=== PATIENT | male | born 1960 | race Caucasian/White ===

== ENCOUNTER 2016-09-06 06:58 | Day surgery (SDC) | payer BC ==
[2016-09-01 10:09] VITALS: BMI 39.3
[~2016-09-06 06:58] MED LIST: LACTATED RINGERS 1,000 ML IV SCH; LIDOCAINE 1% 20 ML VIAL (10MG/ML) FOR IV START INTRADERMA PRN
[2016-09-06 07:13] VITALS: TEMP 97.1
[2016-09-06] MEDS ORDERED: LACTATED RINGERS 1,000 ML IV ONE ×2 (07:24)
[2016-09-06] MEDS ORDERED: PROPOFOL 10 MG/ML 20 ML VIAL IV ONE (07:43)
--- NOTE | 2016-09-06 07:50 | P.GSHP ---
History of Present Illness H&P Date: 09/06/16 Chief Complaint: Screen colonoscopy This a 56-year-old male referred from Dr. chen. Patient presents today for screening colonoscopy. He denies a significant GI complaints Past Medical History Past Medical History: Hypertension, Sleep Apnea/CPAP/BIPAP Additional Past Medical History / Comment(s): BRADYCARDIA & PVC'S, NO C-PAP, BACK PAIN, HX OF DIVERTICULITIS & POLYPS., STATES HE HAS A COLD. History of Any Multi-Drug Resistant Organisms: None Reported Past Surgical History: Hernia Repair, Joint Replacement Past Anesthesia/Blood Transfusion Reactions: No Reported Reaction Past Psychological History: No Psychological Hx Reported Smoking Status: Former smoker Past Alcohol Use History: Occasional Additional Past Alcohol Use History / Comment(s): QUIT SMOKING 2005. SMOKED 1PPD FOR APPROX 25 YEARS. Past Drug Use History: None Reported - Past Family History Brother(s) Family Medical History: Cancer Additional Family Medical History / Comment(s): KIDNEY CANCER Daughter(s) Family Medical History: Cancer Additional Family Medical History / Comment(s): THYROID CANCER Medications and Allergies Home Medications Medication Instructions Recorded Confirmed Type Aspirin [Adult Low Dose Aspirin EC] 81 mg PO DAILY 09/01/16 09/01/16 History Cold And Sinus Rx 1 dose PO DIRECTED PRN 09/01/16 History Cyclobenzaprine [Flexeril] 10 mg PO DIRECTED 09/01/16 09/01/16 History Hydrochlorothiazide 12.5 mg PO DAILY 09/01/16 09/01/16 History Ibuprofen [Motrin] 600 mg PO DIRECTED PRN 09/01/16 09/01/16 History Lisinopril 40 mg PO DAILY 09/01/16 09/01/16 History Allergies Allergy/AdvReac Type Severity Reaction Status Date / Time No Known Allergies Allergy Verified 09/01/16 09:48 Surgical - Exam Vital Signs Temp Pulse Resp BP Pulse Ox 97.1 F L 67 20 163/89 95 09/06/16 07:12 09/06/16 07:12 09/06/16 07:12 09/06/16 07:12 09/06/16 07:12 - General well developed, no distress - Eyes PERRL - ENT normal pinna - Neck no masses - Respiratory normal expansion - Cardiovascular Rhythm: regular - Abdomen Abdomen: soft, non tender Assessment and Plan Plan: We'll perform screening colonoscopy.
--- NOTE | 2016-09-06 08:01 | P.OP ---
Date of Procedure: 09/06/16 Preoperative Diagnosis: Screening colonoscopy Postoperative Diagnosis: Diverticulosis Procedure(s) Performed: Colonoscopy Anesthesia: MAC Surgeon: Clive Recinos Pathology: none sent Condition: stable Disposition: PACU Description of Procedure: The patient's placed on the endoscopy table in the lateral position. He received IV sedation. Digital rectal exam was performed revealed no abnormalities. The prostate was symmetrical without nodules. The flexible colonoscope was then placed patient anus and passed throughout the entire colon. The ileocecal valve was visualized. Cecum, ascending and transverse colon appeared normal. In the descending; there is mild diverticular changes. There is no evidence of diverticulitis. The scope was then brought back the rectum and this appeared normal. Scope was withdrawn for patient.
[2016-09-06 08:14] VITALS: RESP 18
[2016-09-06 08:29] VITALS: BP 127/78; PULSE 56
== END 2016-09-06 09:58 | disposition home or self-care (01) ==
LOC: ORWHC2ENDO 06:58
PROVIDERS: ATTEND Surgery
DX: Z12.11 Encounter for screening for malignant neoplasm of colon (principal); K57.30 Diverticulosis of large intestine without perforation or abscess without bleeding; Z86.010 Personal history of colon polyps; Z87.19 Personal history of other diseases of the digestive system; I10 Essential (primary) hypertension; Z87.891 Personal history of nicotine dependence; I49.3 Ventricular premature depolarization; G47.33 Obstructive sleep apnea (adult) (pediatric); Z99.89 Dependence on other enabling machines and devices; Z79.82 Long term (current) use of aspirin; Z79.1 Long term (current) use of non-steroidal anti-inflammatories (NSAID); Z79.899 Other long term (current) drug therapy
CPT/HCPCS: J2704; G0105; 99153

== ENCOUNTER 2021-08-12 08:40 | Day surgery (SDC) | payer BC ==
[2021-08-10 09:27] VITALS: BMI 44.3
[~2021-08-12 08:40] MED LIST changes: +LIDOCAINE 1% (10MG/ML) FOR IV START INTRADERMA PRN; -LIDOCAINE 1% 20 ML VIAL (10MG/ML) FOR IV START INTRADERMA PRN
[2021-08-12 09:08] VITALS: RESP 16; TEMP 97
[2021-08-12] MEDS ORDERED: KETAMINE 10 MG/ML 20 ML VIAL ONE (10:02)
[2021-08-12] MEDS ORDERED: LIDOCAINE 1% INJ 10MG/ML (20 ML MDV) ONE (10:02)
[2021-08-12] MEDS ORDERED: PROPOFOL 10 MG/ML 20 ML VIAL IV ONE (10:02)
--- NOTE | 2021-08-12 10:05 | P.GSHP ---
History of Present Illness H&P Date: 08/12/21 Chief Complaint: History of rectal bleeding 's is a 61-year-old male presents today for colonoscopy. Patient history of rectal bleeding. Past Medical History Past Medical History: GI Bleed, Hypertension, Prostate Disorder, Sleep Apnea /CPAP/BIPAP Additional Past Medical History / Comment(s): BRADYCARDIA & PVC'S, NO C-PAP, BACK PAIN, HX OF DIVERTICULITIS & POLYPS., History of Any Multi-Drug Resistant Organisms: None Reported Past Surgical History: Hernia Repair, Joint Replacement Additional Past Surgical History / Comment(s): lt knee replacement Past Anesthesia/Blood Transfusion Reactions: No Reported Reaction Smoking Status: Former smoker - Past Family History Brother(s) Family Medical History: Cancer Additional Family Medical History / Comment(s): KIDNEY CANCER Daughter(s) Family Medical History: Cancer Additional Family Medical History / Comment(s): THYROID CANCER Medications and Allergies Home Medications Medication Instructions Recorded Confirmed Type Aspirin [Adult Low Dose Aspirin EC] 81 mg PO DAILY 09/01/16 08/10/21 History Cyclobenzaprine [Flexeril] 10 mg PO DIRECTED PRN 09/01/16 08/10/21 History Hydrochlorothiazide 25 mg PO DAILY 09/01/16 08/10/21 History [hydroCHLOROthiazide] Ibuprofen [Motrin] 600 mg PO DIRECTED PRN 09/01/16 08/10/21 History lisinopriL 40 mg PO DAILY 09/01/16 08/10/21 History Finasteride [Proscar] 5 mg PO DAILY 08/10/21 08/10/21 History amLODIPine [Norvasc] 2.5 mg PO DAILY 08/10/21 08/10/21 History Allergies Allergy/AdvReac Type Severity Reaction Status Date / Time No Known Allergies Allergy Verified 08/12/21 09:03 Surgical - Exam Vital Signs Temp Pulse Resp BP Pulse Ox 97.0 F L 74 16 143/76 94 L 08/12/21 08:57 08/12/21 08:57 08/12/21 08:57 08/12/21 08:57 08/12/21 08:57 - General well developed, well nourished, no distress - Eyes PERRL - ENT normal pinna - Neck no masses - Respiratory normal expansion - Cardiovascular Rhythm: regular - Abdomen Abdomen: soft, non tender Assessment and Plan Assessment: History of rectal bleeding. We'll perform colonoscopy.
--- NOTE | 2021-08-12 10:19 | P.OP ---
Date of Procedure: 08/12/21 Preoperative Diagnosis: GI bleed Postoperative Diagnosis: Diverticulosis Right colon polyp Rectal polyp Procedure(s) Performed: Colonoscopy Anesthesia: MAC Surgeon: Clive Recinos Pathology: other (colon polyps) Condition: stable Disposition: PACU Description of Procedure: The patient's placed on the endoscopy table in the lateral position. He received IV sedation. Digital rectal exam was performed which revealed no abnormalities. The flexible colonoscope was then placed patient anus passed ro tator entire colon. The ileocecal valve was visualized. The cecum was examined. In the right colon there was a small polyp seen this removed with the cold forceps remainder the ascending colon, transverse colon appeared normal in the descending; there is mild diverticular changes. Scope was back the rectum and another polyp seen was removed forcep. Scope withdrawn for patient.
[2021-08-12 10:45] VITALS: BP 130/83; PULSE 64
== END 2021-08-12 11:10 | disposition home or self-care (01) ==
LOC: ORWHC2ENDO 08:40
PROVIDERS: ATTEND Surgery
DX: K57.90 Diverticulosis of intestine, part unspecified, without perforation or abscess without bleeding (principal); K63.5 Polyp of colon; K62.1 Rectal polyp; I10 Essential (primary) hypertension; G47.30 Sleep apnea, unspecified; Z87.891 Personal history of nicotine dependence; Z80.51 Family history of malignant neoplasm of kidney; Z80.8 Family history of malignant neoplasm of other organs or systems; Z79.82 Long term (current) use of aspirin
CPT/HCPCS: 45380; 88305; J2001; J2704

== ENCOUNTER → 2022-11-11 | Outpatient (CLI) | payer BC ==
--- NOTE | 2022-11-12 10:05 | MR ---
EXAMINATION TYPE: MR Prostate wo/w con DATE OF EXAM: 11/11/2022 9:17 AM COMPARISON: CT abdomen pelvis 07/23/2010. CLINICAL INDICATION:Male, 62 years old with history of R97.20 ELEVATED PSA; TECHNIQUE: Multi-planar, multi-sequence imaging of the pelvis is performed prior to and following the uncomplicated administration of bolus intravenous gadolinium. CONTRAST: 14.5 Gadavist Interpretive Criteria: PI-RADS v2.1 SERUM PSA: 4.3 on 09/29/2022 3.49 on 09/07/2020 SURGICAL PATHOLOGY: No data available. FINDINGS: Prostatic dimensions: 5.2 x 5.1 x 4.3 cm. Ellipsoid Volume:59.71 (PSA density=0.07 ng/mL/mL) CENTRAL GLAND (Central and Transition Zones/CZ+TZ): Multiple bilateral, heterogenous appearing hypertrophic stromal nodules, without suspicious lesion. M edian lobe hypertrophy with protrusion into the base of the bladder. (PI-RADS 2) PERIPHERAL ZONE (PZ): No evidence of masslike abnormality, or localized perfusional hypervascularity, to further suggest a focus of clinically significant prostate cancer. (PI-RADS 2) SEMINAL VESICLES (SV): Symmetric and unremarkable. Low T2/T1 signal noted within the seminal vesicles. PERIPROSTATIC TISSUES: Unremarkable. LYMPH NODES: No enlarged pelvic lymph node. REMAINING PELVIS: Bladder wall is within normal limits given distention. No abnormal free or organized intrapelvic fluid collection. No pathologic bowel dilation or mural thickening. OSSEOUS STRUCTURES: No suspicious osseous abnormality. IMPRESSION: 1. No specific features for high-risk prostate cancer. Maximum PI-RADS score: 2. 2. Moderate BPH, estimated gland volume 59.71 mL.
== END | disposition home or self-care (01) ==
LOC: RADMRIMAIN 08:11
PROVIDERS: ATTEND Family Medicine
DX: N40.0 Benign prostatic hyperplasia without lower urinary tract symptoms (principal); R97.20 Elevated prostate specific antigen [PSA]
CPT/HCPCS: 72197; A9585

== ENCOUNTER → 2022-11-23 | Outpatient (CLI) | payer BC ==
--- NOTE | 2022-11-23 14:23 | P.SLEEP ---
History of Present Illness DATE: 11/23/2022 CONSULTATION/NEW PATIENT EVALUATION HISTORY OF PRESENT ILLNESS/SLEEP-WAKE EVALUATION: 62-year-old gentleman had been evaluated in the sleep center for possible obstructive sleep apnea hypopnea syndrome. Patient has history of obstructive sleep apnea diagnosed in another institution 2013, she was started on CPAP at that time but did use equipment only for short period of time. SLEEP SCHEDULE: Usually sleep schedule from 10 PM to 7:30 AM. FALLING ASLEEP: No problems with falling asleep, although patient has TV set and bedroom. DURING SLEEP: Patient has loud snoring, episodes of stop breathing during the sleep, multiple awakenings 5 times with nocturia, dry mouth, grinding teeth and restless leg symptoms. No history of hypnogogical hallucinations, sleep paralysis, or cataplexy. DURING THE DAY/WAKE STATE: In the morning patient wake up tired, has problems with memory. Dewart sleepiness scale is 13, which indicates sleepiness. Patient may take naps 1 nap during lunch hour. PAST MEDICAL HISTORY: Hypertension, BPH, arthritis. PAST SURGICAL HISTORY: Status post left knee replacement, status post hernia repair. MEDICATIONS: Hydrochlorothiazide 25 mg once a day, Norvasc 2.5 mg once a day, lisinopril 40 mg once a day, Flomax 0.4 mg once a day, oxybutynin 10 mg once a day, ibuprofen. SOCIAL HISTORY: Positive for smoking for about 30 years, quit in 2005, alcohol consumption occasional. FAMILY HISTORY: Heart problems, thyroid problems. REVIEW OF SYSTEMS: Loud snoring, multiple awakenings from sleep, sleepiness during the day. No fevers. No double vision. No recent chest pain. No shortness of breath. No abdominal pain. No bleeding episodes. No blood in urine. No seizure episodes. PHYSICAL EXAMINATION: GENERAL: A pleasant patient without any distress. VITAL SIGNS: BP 131/73, HR 69, RR 16, weight 331.2 pounds, height 5 foot 10 inches, body mass index 47.6, temperature 97.6, oxygen saturation at room air 97%. HEENT: PERRLA, EOMI. Evaluation of oropharynx showed tongue protrudes midline, low position of soft palate Mallampati 4. NECK: Supple. No JVD. Thyroid is not palpable. 19.5 inches in circumference. LUNGS: Clear to percussion and to auscultation. Good air exchange. No wheezing or rhonchi. HEART: S1, S2 regular. No murmurs, gallops or rubs. ABDOMEN: Soft and nontender. Bowel sounds are present. No organomegaly appreciated. EXTREMITIES: No clubbing or cyanosis. 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 Cranial nerves 2 to 7 intact. There is no fasciculation or atrophy noted. No focal deficits observed. ASSESSMENT: 1. Loud snoring, multiple awakenings from sleep, extremely low position of soft palate Mallampati 4, wide neck 19.5 inches in circumference, sleepiness Dewart Sleepiness Scale 13. History of obstructive sleep apnea before. Obstructive sleep apnea hypopnea syndrome. 2. Obesity, BMI 47.6. 3. Hypertension. 4. BPH. 5 history of arthritis. 6 . Status post left knee replacement. 7. Status post hernia repair. 8. Restless leg symptoms PLAN: 1. Polysomnography for evaluation of patient's breathing during sleep. 2. CPAP/BiPAP titration if sleep study confirms obstructive sleep apnea- hypopnea syndrome. 3. Preferable position during sleep on the side. 4. No driving if patient feels any sleepiness. Patient is aware of civil and criminal liability for unsafe driving. 5. Sleep hygiene with regular sleep time for at least 7.5-8 hours. 6. Watching and losing weight. Thank you very much for referring this patient for consultation. Sincerely, Jose Bowen MD, PhD, FAASM. Diplomat of [place] [employer], Sleep Medicine Board by [place] [employer] [place] [facility] [place] Past Medical History Past Medical History: GI Bleed, Hypertension, Prostate Disorder, Sleep Apne a/CPAP/BIPAP Additional Past Medical History / Comment(s): BRADYCARDIA & PVC'S, NO C-PAP, BACK PAIN, HX OF DIVERTICULITIS & POLYPS., History of Any Multi-Drug Resistant Organisms: None Reported Past Surgical History: Hernia Repair, Joint Replacement Additional Past Surgical History / Comment(s): lt knee replacement Past Anesthesia/Blood Transfusion Reactions: No Reported Reaction Smoking Status: Former smoker - Past Family History Brother(s) Family Medical History: Cancer Additional Family Medical History / Comment(s): KIDNEY CANCER Daughter(s) Family Medical History: Cancer Additional Family Medical History / Comment(s): THYROID CANCER Medications and Allergies Home Medications Medication Instructions Recorded Confirmed Type Aspirin [Adult Low Dose Aspirin EC] 81 mg PO DAILY 09/01/16 08/10/21 History Cyclobenzaprine [Flexeril] 10 mg PO DIRECTED PRN 09/01/16 08/10/21 History Ibuprofen [Motrin] 600 mg PO DIRECTED PRN 09/01/16 08/10/21 History hydroCHLOROthiazide 25 mg PO DAILY 09/01/16 08/10/21 History lisinopriL 40 mg PO DAILY 09/01/16 08/10/21 History Finasteride [Proscar] 5 mg PO DAILY 08/10/21 08/10/21 History amLODIPine [Norvasc] 2.5 mg PO DAILY 08/10/21 08/10/21 History Allergies Allergy/AdvReac Type Severity Reaction Status Date / Time No Known Allergies Allergy Verified 08/12/21 09:03 Sleep Note - Sleep Note Sleep Note: Temperature: Pulse Rate: Respiratory Rate: Blood Pressure: SpO2: Height: Weight: BMI: Neck Circumference:
== END ==
LOC: SLEEP 13:13
PROVIDERS: ATTEND Internal Medicine
DX: G47.33 Obstructive sleep apnea (adult) (pediatric) (principal); E66.9 Obesity, unspecified; Z68.42 Body mass index [BMI] 45.0-49.9, adult; Z96.652 Presence of left artificial knee joint; Z98.890 Other specified postprocedural states; Z99.89 Dependence on other enabling machines and devices; G25.81 Restless legs syndrome; Z87.891 Personal history of nicotine dependence
CPT/HCPCS: 99211

== ENCOUNTER → 2023-05-03 | Outpatient (CLI) | payer BC ==
--- NOTE | 2023-05-03 16:08 | US ---
EXAMINATION TYPE: US kidneys/renal and bladder DATE OF EXAM: 05/03/2023 COMPARISON: NONE CLINICAL INDICATION: Male, 63 years old with history of N28.1 CYST OF KIDNEY, ACQUIRED; patient state s cyst seen at [facility], no imaging here, large body habitus EXAM MEASUREMENTS: Right Kidney: 13.0 x 5.3 x 6.0 cm Left Kidney: 12.4 x 6.1 x 7.1 cm Right Kidney: No hydronephrosis or masses seen, large in size Left Kidney: No hydronephrosis or masses seen Bladder: wnl Bilateral Jets seen: yes There is no evidence for hydronephrosis at this point in time. No nephrolithiasis is seen. No taiwo s are identified. Cortical medullary differentiation is maintained. The urinary bladder is anechoic. Bilateral ureteral jets are seen. IMPRESSION: No hydronephrosis or nephrolithiasis. No definitive renal cysts identified.
== END | disposition home or self-care (01) ==
LOC: RADUSWWP 15:30
PROVIDERS: ATTEND Urology
DX: N28.1 Cyst of kidney, acquired (principal)
CPT/HCPCS: 76770

== ENCOUNTER 2024-08-22 07:39 | Day surgery (SDC) | payer BC, MEDICARE ==
[2024-08-20 13:11] VITALS: BMI 44.7
[2024-08-22 08:14] VITALS: RESP 16; TEMP 98.3
[2024-08-22] MEDS: LACTATED RINGERS 1,000 ML IV ONE (08:25)
[2024-08-22] MEDS ORDERED: PROPOFOL 10 MG/ML 20 ML VIAL IV ONE (08:38)
--- NOTE | 2024-08-22 08:41 | P.GSHP ---
History of Present Illness H&P Date: 08/22/24 Chief Complaint: Screening colonoscopy Is a 64-year-old male presents today for screening colonoscopy. Patient denies any significant GI complaints. Past Medical History Past Medical History: GI Bleed, Hypertension, Prostate Disorder, Sleep Apnea/CPAP/BIPAP Additional Past Medical History / Comment(s): BRADYCARDIA & PVC'S, NO C-PAP, BACK PAIN, HX OF DIVERTICULITIS & POLYPS., History of Any Multi-Drug Resistant Organisms: None Reported Past Surgical History: Hernia Repair, Joint Replacement Additional Past Surgical History / Comment(s): lt knee replacement, colonoscopy Past Anesthesia/Blood Transfusion Reactions: No Reported Reaction Smoking Status: Current some day smoker - Past Family History Brother(s) Family Medical History: Cancer Additional Family Medical History / Comment(s): KIDNEY CANCER, lymphoma Daughter(s) Family Medical History: Cancer Additional Family Medical History / Comment(s): THYROID CANCER Mother Family Medical History: Cancer Additional Family Medical History / Comment(s): lymphoma Medications and Allergies Home Medications Medication Instructions Recorded Confirmed Type Aspirin [Adult Low Dose Aspirin EC] 81 mg PO DAILY 09/01/16 08/20/24 History Ibuprofen [Motrin] 600 mg PO DAILY 09/01/16 08/20/24 History hydroCHLOROthiazide 50 mg PO DAILY 09/01/16 08/20/24 History lisinopriL 40 mg PO DAILY 09/01/16 08/20/24 History amLODIPine [Norvasc] 2.5 mg PO DAILY 08/10/21 08/20/24 History Cetirizine HCl 10 mg PO DAILY 08/20/24 08/20/24 History Tamsulosin [Flomax] 0.4 mg PO HS 08/20/24 08/20/24 History Allergies Allergy/AdvReac Type Severity Reaction Status Date / Time No Known Allergies Allergy Verified 08/22/24 08:06 Surgical - Exam Vital Signs Temp Pulse Resp BP Pulse Ox 98.3 F 85 16 142/73 92 L 08/22/24 08:13 08/22/24 08:13 08/22/24 08:13 08/22/24 08:13 08/22/24 08:13 - General well developed, well nourished, no distress - Eyes PERRL - ENT normal pinna - Neck no masses - Respiratory normal expansion - Cardiovascular Rhythm: regular - Abdomen Abdomen: soft, non tender Assessment and Plan Assessment: Will perform screening colonoscopy.
--- NOTE | 2024-08-22 08:51 | P.OP ---
Date of Procedure: 08/22/24 Preoperative Diagnosis: Screening colonoscopy Postoperative Diagnosis: diverticulosis Procedure(s) Performed: Screening colonoscopy Anesthesia: MAC Surgeon: Clive Recinos Pathology: none sent Condition: stable Disposition: PACU Description of Procedure: Patient was placed on the endoscopy table in the lateral position. S he received IV sedation. Digital rectal exam performed. This revealed no abnormalities. Flexible colonoscope was then placed patient anus passed throughout the entire colon. The ileocecal valve was visualized. The cecum, ascending and transverse colon appeared normal. In the descending sigmoid colon there was moderate diverticular changes. Scope was brought back into the rectum this appeared normal. Scope withdrawn for the patient.
[2024-08-22 09:24] VITALS: BP 121/81; PULSE 71
== END 2024-08-22 10:16 | disposition home or self-care (01) ==
LOC: ORWHC2ENDO 07:39
PROVIDERS: ATTEND Surgery
DX: Z12.11 Encounter for screening for malignant neoplasm of colon (principal); K57.30 Diverticulosis of large intestine without perforation or abscess without bleeding; I10 Essential (primary) hypertension; N40.0 Benign prostatic hyperplasia without lower urinary tract symptoms; I49.3 Ventricular premature depolarization; G47.33 Obstructive sleep apnea (adult) (pediatric); K76.0 Fatty (change of) liver, not elsewhere classified; K21.9 Gastro-esophageal reflux disease without esophagitis; M54.9 Dorsalgia, unspecified; R00.1 Bradycardia, unspecified; F17.210 Nicotine dependence, cigarettes, uncomplicated; Z79.899 Other long term (current) drug therapy; Z79.82 Long term (current) use of aspirin; Z87.19 Personal history of other diseases of the digestive system; Z98.890 Other specified postprocedural states
CPT/HCPCS: J2704; G0121

== ENCOUNTER → 2024-12-18 | Outpatient (CLI) | payer MEDICARE ==
--- NOTE | 2024-12-18 07:24 | MR ---
EXAMINATION TYPE: MR brain wo/w con DATE OF EXAM: 12/18/2024 COMPARISON: NONE HISTORY: Headaches. Visual disturbance. TECHNIQUE: Multiplanar, multisequence images of the brain and brainstem is performed without and with IV contras t, utilizing 15 mL intravenous Gadobutrol . FINDINGS: Diffusion weighted images demonstrate no evidence of a recent infarct or other diffusion ab normality. There is no extra-axial fluid collection or significant white matter signal abnormality. Mild ventricular and sulcal prominence is seen. Midline structures demonstrate normal morphology. The craniocervical junction appears within normal limits. Post contrast images demonstrate no abnormal enhancement. The dural venous sinuses appear pa tent. The globes are intact. Mild to moderate mucosal thickening involving left maxillary sinus. Mild mucosal thickening involving bilateral ethmoid sinuses. IMPRESSION: Mild chronic paranasal sinus disease otherwise unremarkable study. [facility], , 12/18/2024 7:22 AM
== END | disposition home or self-care (01) ==
LOC: RADMRIMAIN 06:17
PROVIDERS: ATTEND Family Medicine
DX: J34.89 Other specified disorders of nose and nasal sinuses (principal); H53.9 Unspecified visual disturbance
CPT/HCPCS: 70553; A9585